=== PATIENT | female | born 1945 | race Caucasian/White ===

== ENCOUNTER 2020-04-01 11:03 | Outpatient (CLI) | payer MEDICARE, OTHER ==
[2020-04-01] MEDS ORDERED: IOVERSOL 320 50 ML VIAL ONE (11:16)
[2020-04-01] MEDS ORDERED: IOVERSOL 320 100 ML VIAL IVP ONE ×2 (11:17→13:20)
[2020-04-01 11:46] LABS: CREATININE 0.8 mg/dL (0.4-1.0)
[2020-04-01] MEDS ORDERED: IOVERSOL 320 50 ML VIAL PO ONE (13:20)
--- NOTE | 2020-04-01 13:36 | CT Report ---
Reason: LLQ PX,POSSIBLE HERNIA Procedure Date: 04/01/2020 Accession Number: [id number] Procedure: CT - Abdomen/Pelvis W CPT Code: Final Report FULL RESULT: EXAM: CT ABDOMEN AND PELVIS EXAM DATE: 04/01/2020 12:51 PM. CLINICAL HISTORY: LLQ PX, POSSIBLE HERNIA. COMPARISONS: None. TECHNIQUE: Routine helical CT imaging was performed through the abdomen and pelvis. IV contrast: 100 mL OPTIRAY 320. Enteric contrast: Yes. Reconstructions: Coronal and sagittal. In accordance with CT protocol optimization, one or more of the following dose reduction techniques were utilized for this exam: automated exposure control, adjustment of mA and/or KV based on patient size, or use of iterative reconstructive technique. FINDINGS: Lung Bases: Lung bases appear clear. Moderate hiatal hernia, with partial intrathoracic stomach. Liver: Normal. No masses. Gallbladder/Bile Ducts: Unremarkable. Spleen: Normal. Pancreas: Normal. Adrenal Glands: Normal. Kidneys: . No masses or hydronephrosis. Incidental note of retroaortic left renal vein. Peritoneal Cavity/Bowel: Numerous diverticuli are seen of the distal descending colon and sigmoid. There is pericolonic fat stranding and mural thickening at the proximal sigmoid most consistent with diverticulitis. No free air or abscess. The appendix is well visualized and normal. Pelvic Organs: Eccentric right-sided uterine mass suggesting a fibroid. No cystic or mass lesions in either adnexa. The contour of the urinary bladder within normal limits. Vasculature: No aneurysms or other significant abnormality. Bones: No significant abnormality. Other: None. IMPRESSION: 1. Findings most consistent with diverticulitis of the proximal sigmoid. No bowel obstruction. 2. Uterine fibroid indicated. [facility] The call report notification system was initiated by Dr. Kushal Troy at 01:34 PM on 04/01/2020. The above call report findings were discussed with Jessica Posada by Dr. Kushal Troy at 01:41 PM on 04/01/2020.
== END 2020-04-01 11:04 | disposition home or self-care (01) ==
LOC: DI 11:03
PROVIDERS: ATTEND Internal Medicine
DX: K44.9 Diaphragmatic hernia without obstruction or gangrene (principal); Z79.899 Other long term (current) drug therapy
CPT/HCPCS: 36415; 74177; 82565; Q9967

== ENCOUNTER 2021-10-05 10:29 | Outpatient (CLI) | payer MEDICARE, OTHER ==
--- NOTE | 2021-10-05 17:08 | XRAY Report ---
PROCEDURE: Hand 3 View RT INDICATIONS: RT HAND PAIN TECHNIQUE: 3 views of the hand(s) acquired. COMPARISON: None FINDINGS: Bones: Question subacute to chronic healing base of shaft fracture of the fifth metacarpal. No other fractures or dislocations. No suspicious bony lesions. Soft tissues: No suspicious soft tissue calcifications. IMPRESSION: Question subacute to chronic healing base of shaft fracture of fifth metacarpal. Reviewed by: Evan Hale MD on 10/05/2021 5:07 PM PST Approved by: Evan Hale MD on 10/05/2021 5:07 PM PST Station ID: [id number]
== END 2021-10-05 10:30 | disposition home or self-care (01) ==
LOC: DI 10:29
PROVIDERS: ATTEND Internal Medicine
DX: M79.641 Pain in right hand (principal)

== ENCOUNTER 2024-03-20 16:04 | Outpatient (CLI) | payer MEDICARE, OTHER ==
--- NOTE | 2024-03-20 16:40 | CT Report ---
PROCEDURE: Head WO INDICATIONS: DIZZINESS AND WEAKNESS TECHNIQUE: Noncontrast 4.5 mm thick angled axial sections acquired from the foramen magnum to the vertex. For r adiation dose reduction, the following was used: automated exposure control, adjustment of mA and/or kV according to patient size. COMPARISON: None. FINDINGS: Image quality: Excellent. CSF spaces: Basal cisterns are patent. No extra-axial fluid collections. Prominence of the extra-ax ial space can be seen anteriorly. Brain: No midline shift. No intracranial masses or hemorrhage. Sutherland-white matter interface is norm al. Age-appropriate brain parenchymal volume loss and chronic small vessel ischemic change can be se en. Multiple foci of lacunar infarcts can be seen. Symmetric calcification of the basal ganglia can be seen, which is considered to be within normal limits for age. Skull and face: Calvarium and visualized facial bones are intact, without suspicious lesions. Sinuses: Visualized sinuses and mastoids are clear. IMPRESSION: No acute intracranial pathology. Brain parenchymal volume loss, chronic small vessel ischemic change, and multiple foci of lacunar inf arct can be seen. If there is strong clinical concern for a stroke, please consider a dedicated brain MRI for further e valuation (assuming that there is no contraindication to MRI). Reviewed by: Tonio Elkins MD on 03/20/2024 3:38 PM [facility] Approved by: Tonio Elkins MD on 03/20/2024 3:38 PM [facility] Station ID: [id number]
== END 2024-03-20 16:05 | disposition home or self-care (01) ==
LOC: DI 16:04
PROVIDERS: ATTEND Internal Medicine
DX: I63.81 Other cerebral infarction due to occlusion or stenosis of small artery (principal)

== ENCOUNTER 2024-04-03 16:49 | Outpatient (CLI) | payer MEDICARE, OTHER ==
--- NOTE | 2024-04-04 09:06 | Ultrasound Report ---
PROCEDURE: Carotid Doppler Complete INDICATIONS: CVA TECHNIQUE: Color and pulse Doppler interrogation was performed of both carotid systems, with image documentation and velocity measurements. COMPARISON: None. FINDINGS: Right side: Brachial blood pressure: 155/76 mm Hg. Common carotid artery peak systolic velocity: 59 cm/sec. Internal carotid artery peak systolic velocity: 94 cm/sec. Internal carotid artery end diastolic velocity: 38 cm/sec. External carotid artery peak systolic velocity: 105 cm/sec. ICA/CCA peak systolic ratio: 1.5 . Sutherland scale imaging description: No significant atherosclerotic plaque. Percent internal carotid artery stenosis: No hemodynamically significant stenosis. Vertebral artery: Flow direction is antegrade. Left side: Brachial blood pressure: 156/105 mm Hg. Common carotid artery peak systolic velocity: 63 cm/sec. Internal carotid artery peak systolic velocity: 109 cm/sec. Internal carotid artery end diastolic velocity: 37 cm/sec. External carotid artery peak systolic velocity: 98 cm/sec. ICA/CCA peak systolic ratio: 1.7 . Sutherland scale imaging description: No significant atherosclerotic plaque. Percent internal carotid artery stenosis: No hemodynamically significant stenosis. Vertebral artery: Small left mid vertebral artery which demonstrates both antegrade and retrograde fl ow. The distal vertebral artery shows only antegrade flow. IMPRESSION: 1. In the right internal carotid artery, there is no hemodynamically significant stenosis based on pe ak systolic velocity criteria. 2. In the left internal carotid artery, there is no hemodynamically significant stenosis based on pea k systolic velocity criteria. 3. Antegrade blood flow within the right vertebral artery. 4. Indeterminate left vertebral artery, the artery is small and demonstrates both antegrade and retro grade flow. The distal vertebral artery shows only antegrade flow. Findings may represent stenosis ve rsus artifact. The estimate of stenosis included in the report of the imaging study was calculated using the [facility]-end orsed standards of carotid artery stenosis. Reviewed by: Charles Bosch MD on 04/04/2024 9:05 AM PDT Approved by: Charles Bosch MD on 04/04/2024 9:05 AM PDT Station ID: [id number]
== END 2024-04-03 16:50 | disposition home or self-care (01) ==
LOC: DI 16:49
PROVIDERS: ATTEND Internal Medicine
DX: I63.9 Cerebral infarction, unspecified (principal)
CPT/HCPCS: 93880

== ENCOUNTER 2024-05-03 08:47 | Outpatient (CLI) | payer MEDICARE, OTHER | END 2024-05-03 08:48 | disposition home or self-care (01) | LOC: DI 08:47 | PROVIDERS: ATTEND Internal Medicine | DX: I63.9 Cerebral infarction, unspecified (principal) | CPT/HCPCS: 93307 ==